=== PATIENT | female | born 1950 | race Caucasian/White ===

== ENCOUNTER 2017-04-28 06:56 | Outpatient (CLI) | payer MEDICARE ==
--- NOTE | 2017-04-28 09:51 | MRI ---
EXAM: MRI LUMBAR SPINE WITHOUT CONTRAST: HISTORY: Left leg pain. COMPARISON: None. TECHNIQUE: A lumbar spine MRI is performed without intravenous Gadolinium administration. Multisequential, mul tiplanar imaging is performed. FINDINGS: Appropriate T1 marrow signal intensity of the lumbar vertebrae. Lumbar spine vertebral body height is maintained. There is no fracture. There is no significant STIR hyperintensity to suggest verteb ral body edema or ligamentous injury. Symmetric signal intensity of psoas muscles. There is appropriate signal intensity of visualized so lid organs. Conus medullaris terminates at the T12 level. T12-L1: Adequate disk hydration. No significant central canal stenosis o foraminal narrowing. L1-L2: Disk desiccation without significant loss of disk space height. No significant central hunter l stenosis. Neural foramina are patent bilaterally. L2-L3: Disk desiccation with minimal loss of disk space height. No significant posterior disk abno rmality. No significant central canal stenosis. Mild right foraminal narrowing. The left neural f oramen is patent. L3-L4: Disk desiccation with minimal loss of disk space height. No significant posterior disk abno rmality. No significant central canal stenosis. Minimal right and left foraminal narrowing. L4-L5: Disk desiccation with mild loss of disk space height. There is a central disk bulge with mi nimal narrowing of both subarticular zones. No significant encroachment upon the traversing right L 5 nerve root. Minimal mass effect upon the traversing the left L5 nerve root. Mild right and left foraminal narrowing. L5-S1: No significant posterior disk abnormality. No significant central canal stenosis. Neural f oramen are patent. T1 hyperintensities in the left and right lateral recess due to peroneal sleeve cysts. IMPRESSION: Degenerative change of the lumbar spine as above. No high-grade central canal stenosis. No high-gr redd foraminal narrowing. POS: [facility]
== END 2017-04-28 06:57 | disposition home or self-care (01) ==
LOC: MRI 06:56
PROVIDERS: ATTEND Orthopaedic Surgery
DX: M54.5 Low back pain (principal); M47.896 Other spondylosis, lumbar region
CPT/HCPCS: 72148

== ENCOUNTER 2017-10-02 13:18 | Outpatient (CLI) | payer MEDICARE ==
--- NOTE | 2017-10-02 15:37 | ULT ---
LEFT LOWER EXTREMITY ULTRASOUND WITH DOPPLER: HISTORY: Edema. COMPARISON: None. TECHNIQUE: Mack-scale, color-flow, Doppler imaging, and spectral wave-form analysis was performed of the left lo wer extremity venous system. FINDINGS: There is compressibility, presence of flow, and augmentation in the common femoral vein, femoral vein , and popliteal vein. There is flow in the greater saphenous vein, profunda vein, and posterior tibi al vein. IMPRESSION: No evidence of thrombus in the left lower extremity deep venous system. POS: [facility]
== END 2017-10-02 13:19 | disposition home or self-care (01) ==
LOC: ULT 13:18
PROVIDERS: ATTEND Orthopaedic Surgery
DX: M79.89 Other specified soft tissue disorders (principal); M79.662 Pain in left lower leg

== ENCOUNTER 2018-02-22 13:56 | Outpatient (CLI) | payer MEDICARE | END 2018-02-22 13:57 | disposition home or self-care (01) | LOC: BICMAMMO 13:56 | PROVIDERS: ATTEND Family Medicine | DX: Z12.31 Encounter for screening mammogram for malignant neoplasm of breast (principal); Z13.820 Encounter for screening for osteoporosis; M85.88 Other specified disorders of bone density and structure, other site; Z78.0 Asymptomatic menopausal state; Z80.3 Family history of malignant neoplasm of breast | CPT/HCPCS: 77063; 77067; 77080 ==

== ENCOUNTER 2018-03-21 17:53 | Emergency (ER) | payer MEDICARE ==
--- NOTE | 2018-03-21 20:02 | RAD ---
PA AND LATERAL CHEST X-RAY: 03/21/2018 HISTORY: Dyspnea and cough. COMPARISON: 01/25/2017 FINDINGS: The cardiac silhouette and pulmonary vasculature are within normal limits. There is minimal symmetri c biapical pleural thickening present. The lungs are otherwise clear. There has been no interval ch lola from prior exam. IMPRESSION: No acute cardiopulmonary process. POS: [facility]
[2018-03-21] MEDS ORDERED: Albuterol Sulfate 2.5 mg/3 ml Neb ONE ×2 (21:01)
[2018-03-21] MEDS ORDERED: predniSONE 20 MG TAB ONE (21:13)
[2018-03-21] MEDS ORDERED: Acetaminophen 500 MG TAB ONE (21:20)
== END 2018-03-21 22:52 | disposition home or self-care (01) ==
LOC: ERS 17:53
DX: R06.2 Wheezing (principal); B34.9 Viral infection, unspecified; M81.0 Age-related osteoporosis without current pathological fracture; E78.5 Hyperlipidemia, unspecified; I10 Essential (primary) hypertension; Z79.899 Other long term (current) drug therapy
CPT/HCPCS: 71046; J7506; J7611; J7620

== ENCOUNTER 2018-10-03 21:56 | Observation (INO) | payer MEDICARE ==
[~2018-10-03 21:56] MED LIST: ISOVUE-370 76%-LOCM 1 ML ONE
[2018-10-03 22:32] LABS: #Basophils 0.1 thou/uL (0.0-0.2); #Eosinphils 0.3 thou/uL (0.0-0.7); #Lymphocytes 2.5 thou/uL (1.20-3.40); #Monocytes 0.4 thou/uL (0.11-0.59); #Neutrophils 3.2 thou/uL (1.40-6.50); %Basophils 2.1 % (0.0-1.0); %Eosinophils 3.9 % (0.0-10.0); %Lymphocytes 37.9 % (21.0-51.0); %Monocytes 6.4 % (0.0-10.0); %Neutrophils 49.6 % (42.0-75.0); Hemoglobin 11.8 g/dL (12.0-16.0); Mean Corpuscular HGB CONC 31.4 g/dL (32.0-36.0); Mean Corpuscular Hemoglobin 27.7 pg (27.0-31.0); Mean Corpuscular Volume 88.3 fL (78.0-98.0); Mean Platelet Volume 9.9 fL (7.4-10.4); Platelet Count 274 thou/uL (130-400); RBC Distribution Width 12.1 % (11.5-14.5); Red Blood Cell (RBC) Count 4.27 mill/uL (4.20-5.40); White Blood Cell (WBC) Count 6.5 thou/uL (4.8-10.8)
[2018-10-03 22:48] LABS: ALT (SGPT) 18 U/L (8-55); AST (SGOT) 19 U/L (5-34); Alkaline Phosphatase 106 U/L (40-150); Anion Gap 14 mmol/L (10-20); BUN (Urea Nitrogen) 15 mg/dL (9.8-20.1); Bilirubin, Total 0.4 mg/dL (0.2-1.2); Calc. Creatinine Clearance 0 mL/min (70-130); Calcium 9.7 mg/dL (7.8-10.44); Carbon Dioxide 24 mmol/L (23-31); Chloride 106 mmol/L (98-107); Estimated GFR-MDRD 65; Globulin 2.7 g/dL (2.4-3.5); Glucose 96 mg/dL (80-115); Potassium 3.9 mmol/L (3.5-5.1); Protein, Total 6.7 g/dL (6.0-8.3); Sodium 140 mmol/L (136-145)
[2018-10-03] MEDS ORDERED: diphenhydrAMINE 50 MG/ML VIAL ONE (23:17)
[2018-10-03] MEDS ORDERED: Famotidine/PF 20 mg/2ml Vial ONE (23:17)
[2018-10-03] MEDS ORDERED: methylPREDNISolone Sod Succ/PF 125 MG/2 ML VIAL ONE (23:17)
[2018-10-03] MEDS ORDERED: Pantoprazole 40 MG VIAL ONE (23:19)
[2018-10-03] MEDS ORDERED: Ondansetron PF 4 MG/2 ML Vial ONE (23:36)
[2018-10-04] MEDS ORDERED: MEROPENEM 1 GM/50 ML 1 GM in Premix Bag 1 BAG IVPB SCH (00:45)
[2018-10-04 03:17] VITALS: BMI 26.9
--- NOTE | 2018-10-04 08:01 | CT ---
CT OF THE ABDOMEN AND PELVIS WITH IV CONTRAST: INDICATION: History of lower abdominal pain. COMPARISON: None. FINDINGS: Lung bases are clear. No focal hepatic lesion is evident. The gallbladder is surgically absent. The pancreas, spleen, adrenal glands, and kidneys are normal-appearing. No free fluid or enlarged lymph nodes are evident. There is colonic diverticula involving the sigmoid colon. There is fluid present within the sigmoid colon. No overt pericolonic inflammatory stranding is evident. The uterus is surgically absent. Th e bladder, rectum, and perirectal soft tissues are unremarkable-appearing. No acute osseous abnormality is evident. There is diffuse osteopenia. There is scattered degenerati ve and osteoarthritic change. IMPRESSION: 1. Colonic diverticulosis. 2. Fluid density seen within the sigmoid colon can be seen with diarrheal states. This also can be seen with mild colitis. 3. Cholecystectomy and hysterectomy. POS: [facility]
[2018-10-04] MEDS ORDERED: Pregabalin 25 MG CAP PO PRN (10:57)
[2018-10-04] MEDS ORDERED: Gabapentin 100 MG CAP PO PRN (10:57)
[2018-10-04 11:13] LABS: #Lymphocytes 0.6 thou/uL (1.20-3.40); #Neutrophils 7.1 thou/uL (1.40-6.50); %Basophils 0.3 % (0.0-1.0); %Eosinophils 0.1 % (0.0-10.0); %Lymphocytes 7.4 % (21.0-51.0); %Monocytes 0.2 % (0.0-10.0); Hemoglobin 11.5 g/dL (12.0-16.0); Mean Corpuscular Hemoglobin 28.3 pg (27.0-31.0); Mean Corpuscular Volume 88.5 fL (78.0-98.0); Mean Platelet Volume 9.7 fL (7.4-10.4); Platelet Count 263 thou/uL (130-400); Red Blood Cell (RBC) Count 4.07 mill/uL (4.20-5.40); White Blood Cell (WBC) Count 7.7 thou/uL (4.8-10.8)
--- NOTE | 2018-10-04 11:57 | HP ---
CHIEF COMPLAINT: Melena. HISTORY OF PRESENT ILLNESS: This patient is a 68-year-old female with a couple of weeks of headaches, which are somewhat unusual for her. She also has some radicular pain, for which she has been taking some p.o. Aleve. The patient awoke yesterday with some generalized body pain. She took two Tylenol and Aleve at noon and got sleepy, took a nap. About 3, she woke up, started having maroon-colored bowel movements. She also developed some lower abdominal cramping type symptoms radiating to the back. She said she had about 5 bowel movements that were of the character before those other symptoms started. She also reports that recently she has been having a sensation that when she eats food is distending her stomach and staying in place for an hour before it feels like it will resolve. She denies specifically having had any fevers or chills or hematemesis. REVIEW OF SYSTEMS: Notable for generalized arthralgias. All other systems were reviewed and all pertinent positives and negatives noted in the history of present illness. PAST MEDICAL HISTORY: Osteoporosis, osteoarthritis, hyperlipidemia, hypertension, GERD, IBS, left lower extremity neuropathy, right lower extremity sciatica. 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 The patient also recently had some respiratory issues and was seen in the emergency department, was given albuterol. PAST SURGICAL HISTORY: Hysterectomy, cholecystectomy, left knee surgery, right parathyroidectomy, colonoscopies x3 notable for diverticulosis, last one was 4-5 years ago. She has had a tonsillectomy and a benign left breast lumpectomy. FAMILY HISTORY: Father had non-Hodgkin's lymphoma, hypertension, heart disease. Mother had non-Hodgkin's lymphoma and hypertension. SOCIAL HISTORY: The patient is a nonsmoker, nondrinker, and nondrug user. She is . She is full code. Her would be her surrogate decision maker. ALLERGIES: DULOXETINE WITH SEVERE ANAPHYLAXIS TYPE REACTION. IODINE WITH SEVERE ANAPHYLAXIS TYPE REACTION. CODEINE WHICH CAUSES ITCHING. HYDROCODONE AND MORPHINE BOTH CAUSE ITCHING. CORN CAUSES HER SOME DIARRHEA AND TOMATO CAUSES HER SOME DIARRHEA. PHYSICAL EXAMINATION: VITAL SIGNS: Temperature 98.1, pulse 65, respirations 16, O2 saturation 97% on room air, BP 121/73. GENERAL APPEARANCE: Age-appropriate female, in no distress. She is awake, alert, oriented, pleasant, and cooperative. HEART: Regular rate and rhythm without murmurs, gallops, or rubs. LUNGS: Clear to auscultation bilaterally with good chest wall expansion and air exchange. ABDOMEN: Soft and nondistended. Positive bowel sounds. She has tenderness to palpation in the extreme left lower quadrant area. No guarding, no rebound. EXTREMITIES: Warm, dry with no cyanosis, clubbing, or edema. She has significant osteoarthropathy of the finger joints. NEURO: The patient is neurologically intact. No focal defects. PSYCH: Normal affect and behavior. LABORATORY DATA: White count 6.5, hemoglobin 11.8, platelets 274. Sodium 140, potassium 3.9, chloride 106, CO2 is 24, BUN 15, creatinine 0.87, glucose 96, AST 19, ALT is 18, alkaline phosphatase 106, albumin 4.0. C. diff negative. CT abdomen and pelvis shows diverticulosis with some equivocal evidence for colitis which may simply be related to a diarrheal state and the evidence of cholecystectomy and hysterectomy. IMPRESSION AND PLAN: 1. Gastrointestinal bleed, it sounds more likely to be lower in nature and possibly diverticular. We will repeat her hemoglobin now and consult GI. Keep her n.p.o. until then. 2. Possible colitis. The patient's bleed could potentially be related to colitis. There is some evidence for that on the CT scan. We will continue with meropenem as that was started in the emergency department, although she does not have white count. Does not appear to have a fever. 3. Hypertension. Continue with her usual home medications including losartan and amlodipine. 4. Neuropathy. Continue gabapentin b.i.d. 5. History of osteoporosis. Continue her Fosamax. Job ID: [id number]
[2018-10-04] MEDS: MEROPENEM 1 GM/50 ML 1 GM in Premix Bag 1 BAG IVPB SCH ×2 (14:07→21:17)
[2018-10-04] MEDS ORDERED: GoLYTELY 4,000 ml Bottle PO SCH (17:00)
[2018-10-04] MEDS ORDERED: Labetalol HCl 100 MG/20 ML VIAL SLOW IVP PRN (19:22)
[2018-10-04] MEDS ORDERED: Acetaminophen 500 MG TAB PO PRN (19:22)
[2018-10-04] MEDS ORDERED: hydrALAZINE 20 MG/ML VIAL SLOW IVP PRN (19:23)
[2018-10-04] MEDS: Amlodipine 5 MG TAB PO SCH (19:43)
[2018-10-04] MEDS ORDERED: Ondansetron PF 4 MG/2 ML Vial SLOW IVP PRN (20:08)
[2018-10-04] MEDS ORDERED: Ondansetron ODT 4 MG TAB PO PRN (20:08)
--- NOTE | 2018-10-04 22:52 | CON ---
DATE OF CONSULTATION: 10/04/2018 REASON FOR CONSULTATION: GI bleeding. HISTORY OF PRESENT ILLNESS: Anju Ayala is a very pleasant 68-year-old woman, previously seen by my GI colleague, Dr. Dakota Mack. She has a history of left-sided diverticulosis. She has had colonoscopies back in 2000 and 1994. Her most recent endoscopy was in 2013. She had an EGD at that time, which was normal and a colonoscopy showing only diverticulosis in the sigmoid colon and descending colon as well as a scar at the splenic flexure. Dr. Mack had recommended repeating colonoscopy in a 5-year interval, which is coming up soon. The patient has some chronic IBS type symptoms, but nothing new in this regard recently. She reports that yesterday afternoon about 3:30, she had a sudden urge to have a bowel movement and passed a large amount of dark red blood into the commode. There was no stool with this. She had 11 more episodes yesterday, where she would have to go pass red blood into the toilet. 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 There was no significant abdominal pain. No anal pain with this. She was slightly nauseated, but there has been no vomiting. No presyncope. She presented last night for evaluation. Hemoglobin was 11.8. This morning, hemoglobin is 11.5. BUN only 15. She has had 3 more bloody bowel movements over the course of today, but feels that these are slowing down, passing mostly clots this morning. She has remained hemodynamically stable. CT scan demonstrated only sigmoid diverticulosis as well as fluid density within the sigmoid colon. REVIEW OF SYSTEMS: Full review of systems including constitutional, head, eyes, ears, nose, throat, GI, , cardiovascular, respiratory, musculoskeletal, neurologic systems is negative except as noted in the HPI. PAST MEDICAL HISTORY: Hysterectomy, cholecystectomy, left knee surgery, osteopenia, osteoarthritis, hyperlipidemia, hypertension, GERD, IBS, left lower extremity neuropathy, right lower extremity sciatica, recurrent laryngeal nerve injury, benign left breast lumpectomy, tonsillectomy, and right parathyroidectomy. FAMILY HISTORY: Father had non-Hodgkin lymphoma. Mother had non-Hodgkin lymphoma. Both maternal grandmother and mother had pancreatic cancer. SOCIAL HISTORY: No smoking, alcohol, or drug use. ALLERGIES: DULOXETINE, IODINE, CODEINE, HYDROCODONE, MORPHINE, CORN, TOMATOES. OUTPATIENT MEDICATIONS: 1. Gabapentin. 2. Omeprazole 40 mg daily. 3. Losartan. 4. Vitamin D3. 5. Amlodipine. 6. Fosamax. 7. Lyrica. PHYSICAL EXAMINATION: VITAL SIGNS: Temperature 98.4, pulse 70, blood pressure 137/81, and oxygen saturation 97% on room air. GENERAL: A 68-year-old woman, sitting up in bed comfortably, in no distress. SKIN: No jaundice. No rashes were palpable. HEENT: Eyes, no scleral icterus. Extraocular movements are intact. ENT, mucous membranes are moist. No oral lesions. LYMPH: No submandibular or supraclavicular lymphadenopathy. THYROID: Nontender to palpation. HEART: Regular rate and rhythm. LUNGS: Clear to auscultation bilaterally. ABDOMEN: Bowel sounds are present. Soft and nontender to palpation throughout. EXTREMITIES: No peripheral edema. VESSELS: Radial pulses 2+ bilaterally. NEUROLOGIC: Cranial nerves 2 to 12 intact bilaterally. No focal deficits. LABORATORY STUDIES: Hemoglobin stable at 11.5, WBC 7.7, platelets 263. Sodium 140, potassium 3.9, BUN 15, creatinine 0.87, total bilirubin 0.4, alkaline phosphatase 106, AST 19, ALT 18, albumin 4.0. C difficile assay is negative. IMAGING STUDIES: CT of the abdomen and pelvis demonstrates postoperative changes of cholecystectomy and hysterectomy. There are sigmoid diverticulosis as well as fluid density within the sigmoid colon. ASSESSMENT AND PLAN: 1. Lower gastrointestinal bleeding, appears to be resolving. 2. Acute blood loss anemia, mild. 3. Sigmoid diverticulosis. The patient's presentation seems most consistent with acute diverticular bleeding. This may be resolving as it appears to have been slowing down over the course of the day. It has been almost 5 years since her last colonoscopy. I would recommend we administer bowel preparation tonight and proceed with colonoscopy tomorrow. Trend hemoglobin and hematocrit tomorrow as well. If her hemoglobin and hematocrit were stable and bleeding has resolved, the patient could potentially be discharged from the hospital after colonoscopy tomorrow. The patient desires to proceed. Thank you for the consultation. Please call anytime with questions or concerns. Job ID: [id number]
[2018-10-05] MEDS: MEROPENEM 1 GM/50 ML 1 GM in Premix Bag 1 BAG IVPB SCH ×3 (06:22→22:20)
[2018-10-05] MEDS: Losartan 25 MG TAB PO SCH (08:18)
[2018-10-05] MEDS: Amlodipine 5 MG TAB PO SCH ×2 (08:18→19:32)
[2018-10-05 08:44] LABS: Hemoglobin 10.1 g/dL (12.0-16.0); Mean Corpuscular HGB CONC 31.9 g/dL (32.0-36.0); Mean Corpuscular Hemoglobin 28.2 pg (27.0-31.0); Mean Corpuscular Volume 88.5 fL (78.0-98.0); Mean Platelet Volume 9.4 fL (7.4-10.4); Platelet Count 226 thou/uL (130-400); RBC Distribution Width 12.2 % (11.5-14.5); Red Blood Cell (RBC) Count 3.59 mill/uL (4.20-5.40); White Blood Cell (WBC) Count 7.7 thou/uL (4.8-10.8)
[2018-10-05 08:45] LABS: #Basophils 0.1 thou/uL (0.0-0.2); #Eosinphils 0.1 thou/uL (0.0-0.7); #Monocytes 0.6 thou/uL (0.11-0.59); %Basophils 1.2 % (0.0-1.0); %Eosinophils 0.8 % (0.0-10.0); %Lymphocytes 25.7 % (21.0-51.0); %Monocytes 7.3 % (0.0-10.0); %Neutrophils 65.1 % (42.0-75.0)
[2018-10-05] MEDS ORDERED: PROPOFOL 200 MG/20 ML VIAL ONE (11:54)
--- NOTE | 2018-10-05 20:31 | PRG ---
DATE OF SERVICE: 10/05/2018 SUBJECTIVE: The patient is a very pleasant female with past medical history significant for left-sided diverticulosis per colonoscopies in 2000, 1994, and 2013, chronic IBS, hypertension, and hyperlipidemia, who presented with symptoms of rectal bleeding. She states that the bleeding has significantly decreased since her hospitalization. She has no complaints of nausea or vomiting. She had colonoscopy with Dr. Mack late this afternoon, which did reveal evidence of a diverticular bleed that was mostly resolved. OBJECTIVE: VITAL SIGNS: Blood pressure 101/57. The patient's temperature 97.5 , pulse 82, and O2 saturation 95% on room air. GENERAL: This is a well-appearing female, resting comfortably in no acute distress. She is awake, alert, and oriented x3. CV: S1 and S2. Regular rate and rhythm. No appreciable murmurs, rubs, or gallops. LUNGS: Regular respiratory rate and pattern. Clear to auscultation bilaterally. No wheezes, rhonchi, or crackles noted. ABDOMEN: Positive bowel sounds, soft, and nontender. SKIN: No rashes. EXTREMITIES: +2 DP pulses bilaterally. No edema. NEUROLOGIC: Cranial nerves 2 through 12 grossly intact. Otherwise, she is nonfocal. LABORATORY DATA: Hemoglobin is 10.1 down from 11.8 on her arrival, hematocrit 31.8. ASSESSMENT: 1. Hematochezia secondary to diverticular bleed, resolving. 2. Anemia secondary to above. 3. Hypertension, controlled. 4. Neuropathy. 5. History of osteoporosis. PLAN: We will recheck hemoglobin and hematocrit in the morning. I expect if her bleeding has completely resolved and her hemoglobin is stable, she will be able to go home tomorrow. We will follow GI recommendations. Continue home medication regimen. Care discussed with Dr. Jackson. Job ID: [id number] [facility]
[2018-10-06 05:57] LABS: #Basophils 0.1 thou/uL (0.0-0.2); #Eosinphils 0.2 thou/uL (0.0-0.7); #Lymphocytes 2.1 thou/uL (1.20-3.40); #Monocytes 0.4 thou/uL (0.11-0.59); %Basophils 0.9 % (0.0-1.0); %Eosinophils 3.2 % (0.0-10.0); %Lymphocytes 37.5 % (21.0-51.0); %Monocytes 6.2 % (0.0-10.0); %Neutrophils 52.2 % (42.0-75.0); Hemoglobin 10.1 g/dL (12.0-16.0); Mean Corpuscular HGB CONC 31.7 g/dL (32.0-36.0); Mean Corpuscular Hemoglobin 28.4 pg (27.0-31.0); Mean Corpuscular Volume 89.6 fL (78.0-98.0); Mean Platelet Volume 9.5 fL (7.4-10.4); Platelet Count 216 thou/uL (130-400); RBC Distribution Width 12.4 % (11.5-14.5); Red Blood Cell (RBC) Count 3.56 mill/uL (4.20-5.40); White Blood Cell (WBC) Count 5.7 thou/uL (4.8-10.8)
[2018-10-06] MEDS: MEROPENEM 1 GM/50 ML 1 GM in Premix Bag 1 BAG IVPB SCH (06:12)
--- NOTE | 2018-10-06 08:09 | OP ---
DATE OF PROCEDURE: 10/05/2018 PREOPERATIVE DIAGNOSIS: Lower gastrointestinal bleed. DESCRIPTION OF PROCEDURE: After informed consent was obtained, the patient was placed in a left lateral decubitus position. Anesthesia was administered per the Anesthesia Department. Forward-viewing endoscope was inserted into the rectum and passed to the cecum with ease. The cecum, ileocecal valve, and appendiceal orifice were normal. The prep was good to fair mainly because of foamy yellow material in the right colon. There was no blood or bloody affluent in the right colon. The terminal ileum was normal. No bloody effluent was seen there. The area was washed to exclude blood or mucosal abnormalities, but not good enough to exclude polyps. The right colon was normal. In the left colon, beginning in the sigmoid, there was some bright red bloody effluent that was washed clean. In the sigmoid, it was unsure whether the bloody effluent was reaccumulating or not, but no obvious area of bleeding was noted, but there were multiple diverticula in this area. Eventually, no bloody effluent was seen in the sigmoid. ASSESSMENT: Sigmoid diverticulosis coli-likely source of the patient's bleeding. There is bloody affluent in the sigmoid colon, but none in the right colon. RECOMMENDATIONS: 1. Continue observation for 24-48 additional hours depending on the patient's course and her H and H. 2. Resume diet. Job ID: [id number]
[2018-10-06] MEDS: Losartan 25 MG TAB PO SCH (08:45)
[2018-10-06] MEDS: Amlodipine 5 MG TAB PO SCH (08:45)
[2018-10-06 09:16] VITALS: BP 126/72; TEMP 97.8
--- NOTE | 2018-10-06 18:29 | DIS ---
DATE OF ADMISSION: 10/04/2018 DATE OF DISCHARGE: 10/06/2018 ALLERGIES: DULOXETINE, IODINE, CODEINE, CORN, HYDROCODONE, MORPHINE, AND TOMATO. CHIEF COMPLAINT: Rectal bleeding. FINAL DIAGNOSES: 1. Lower gastrointestinal bleed secondary to sigmoid diverticulosis. 2. Mild anemia secondary to above. 3. Hypertension. 4. Neuropathy. 5. History of osteoporosis. PROCEDURES PERFORMED: Colonoscopy by Dr. Dakota Mack. LABORATORY DATA: The patient's hemoglobin is stable at 10.1, hematocrit 31.9. Sodium 140, potassium 3.9, creatinine 0.87, glucose 96. LFTs within normal limits. IMAGING RESULTS: Endoscopy results; sigmoid diverticulosis coli likely source of the patient's bleeding. Bloody effluent was found in the sigmoid colon, but none in the right colon. She underwent washout and eventually no bloody effluent was seen in the sigmoid. CONSULTATIONS: Dr. Dakota Mack. HOSPITAL COURSE: The patient is a very pleasant 68-year-old female with past medical history significant for left-sided diverticulosis per colonoscopies in 1994, 2000, and 2013, chronic IBS, hypertension, and hyperlipidemia, who presented to the ER with symptoms of rectal bleeding. The patient states that she passed a large amount of dark red blood into the commode, with no stool apparent. She had 11 more episodes of this before and presenting to the ER for further workup and treatment. Her hemoglobin on arrival was 11.8. She continued to have several bloody stools during the day of her admission. She was seen in consultation by Dr. Arnav Sanabria of GI. He recommended colonoscopy. Her primary GI physician, Dr. Dakota Mack performed colonoscopy, which revealed sigmoid diverticulosis coli, likely source of the patient's bleeding. He performed washout with eventual no bloody effluent seen. She rested well overnight. Since procedure, she has had no further bleeding. Her hemoglobin is stable from yesterday at 10.1. The patient feels well. She denies any nausea, vomiting, chest pain, or shortness of breath. She denies any dizziness. Per GI recommendations, the patient did stay overnight after her procedure for observation and repeat hemoglobin and hematocrit, which was stable. PHYSICAL EXAMINATION: VITAL SIGNS: Blood pressure 126/72, O2 saturation 97%, and pulse 72. GENERAL: Awake and alert. No acute distress, sitting up in bed, eating breakfast. HEENT: Atraumatic and normocephalic. Eye movement intact. NECK: Supple, no JVD. No carotid bruit. RESPIRATORY: Regular respiratory rate and pattern, clear to auscultation bilaterally. CV: S1 and S2. No appreciable murmurs, rubs, or gallops. GI: Soft and nontender. Positive bowel sounds. PERIPHERAL VASCULAR: No lower extremity edema. +2 DP pulses bilaterally. MUSCULOSKELETAL: No joint effusion or swelling. NEUROLOGIC: Awake and alert. No focal deficit. SKIN: Normal, dry, no rashes. CONDITION AT DISCHARGE: Stable. DISCHARGE MEDICATIONS: 1. Fosamax 10 mg tab, one tab p.o. daily. 2. Amlodipine 5 mg tab, one tab p.o. b.i.d. 3. Vitamin D3 supplement 1000 unit capsule, 1000 units p.o. daily. 4. Gabapentin 100 mg p.o. b.i.d. 5. Losartan 100 mg p.o. daily. 6. Omeprazole 40 mg tab, one tab p.o. daily. 7. Pregabalin 25 mg cap, 100 mg p.o. b.i.d. 8. New prescription for ferrous sulfate 325 mg tablet, one tab p.o. b.i.d. DISCHARGE DISPOSITION: Discharged to home. PLAN: The patient will follow up with her primary care doctor in the next two weeks. She will follow up with GI. She will monitor for further signs of bleeding as well as continue her iron supplement. Plan of care discussed with Dr. Jackson and he agrees with plan. Job ID: [id number]
--- NOTE | 2018-10-09 11:57 | EKG ---
Test Reason : Blood Pressure : / mmHG Vent. Rate : 071 BPM Atrial Rate : 071 BPM P-R Int : 158 ms QRS Dur : 088 ms QT Int : 420 ms P-R-T Axes : 078 083 073 degrees QTc Int : 456 ms Normal sinus rhythm Septal infarct , age undetermined Abnormal ECG Confirmed by RIGO CROCKETT DO ([id number]), publications editor FAHEEM MAYERS ([id number]) on 10/09/2018 11:57:02 AM Referred By: Confirmed By:RIGO CROCKETT DO
== END 2018-10-06 09:34 | disposition home or self-care (01) ==
LOC: ERS 21:56 → T4-B 10-04 02:56
PROVIDERS: ADMIT Internal Medicine; ATTEND Internal Medicine
PROC: 0DJD8ZZ Inspection of Lower Intestinal Tract, Via Natural or Artificial Opening Endoscopic (ICD-10-PCS; principal; 2018-10-03)
DX: K57.31 Diverticulosis of large intestine without perforation or abscess with bleeding (principal); D64.9 Anemia, unspecified; I10 Essential (primary) hypertension; K58.9 Irritable bowel syndrome, unspecified; G62.9 Polyneuropathy, unspecified; M81.0 Age-related osteoporosis without current pathological fracture; E78.5 Hyperlipidemia, unspecified; Z79.899 Other long term (current) drug therapy; Z88.5 Allergy status to narcotic agent; Z88.8 Allergy status to other drugs, medicaments and biological substances; Z91.018 Allergy to other foods
CPT/HCPCS: 45378; 74177; 80053; 85025 ×4; 86850; 86900; 86901; 87324; 87449; 93005; 96365; 96366 ×3; 96375; 96376; 99285; G0378 ×3; 36415; C9113; J1200; J2185; J2405; J2704; J2930; Q9966; S0028

== ENCOUNTER 2019-03-10 07:59 | Outpatient (CLI) | payer MEDICARE ==
[2019-03-10 09:27] LABS: Bacteria/HPF None Seen HPF (None Seen); Bilirubin Negative (Negative); Blood, Urine Negative (Negative); Clarity Clear (Clear); Glucose, Urine (Dipstick) Normal (Negative); Leukocyte Negative Leu/uL (Negative); Nitrite Negative (Negative); Protein, Urine (Dipstick) 10 mg/dL (Neg-Trace); RBC/HPF 0-3 HPF (0-3); Squamous Epithelial 0-3 HPF (0-3); Urobilinogen Normal mg/dL (Less than 2); WBC/HPF 0-3 HPF (0-3)
[2019-03-10 09:34] LABS: INR-International Normal Ratio 0.9; Prothrombin Time 12.1 SEC (12.0-14.7)
[2019-03-10 09:35] LABS: #Basophils 0.1 thou/uL (0.0-0.2); #Eosinphils 0.3 thou/uL (0.0-0.7); #Lymphocytes 1.6 thou/uL (1.20-3.40); #Monocytes 0.5 thou/uL (0.11-0.59); #Neutrophils 3.8 thou/uL (1.40-6.50); %Basophils 1.1 % (0.0-1.0); %Eosinophils 4.9 % (0.0-10.0); %Lymphocytes 25.8 % (21.0-51.0); %Monocytes 7.3 % (0.0-10.0); Hemoglobin 13.1 g/dL (12.0-16.0); Mean Corpuscular HGB CONC 32.7 g/dL (32.0-36.0); Mean Corpuscular Hemoglobin 28.7 pg (27.0-31.0); Mean Corpuscular Volume 87.8 fL (78.0-98.0); Mean Platelet Volume 9.3 fL (7.4-10.4); Platelet Count 303 thou/uL (130-400); RBC Distribution Width 12.1 % (11.5-14.5); Red Blood Cell (RBC) Count 4.57 mill/uL (4.20-5.40); White Blood Cell (WBC) Count 6.3 thou/uL (4.8-10.8)
[2019-03-10 09:46] LABS: Anion Gap 14 mmol/L (10-20); BUN (Urea Nitrogen) 12 mg/dL (9.8-20.1); Calc. Creatinine Clearance 0 mL/min (70-130); Calcium 10.4 mg/dL (7.8-10.44); Carbon Dioxide 25 mmol/L (23-31); Chloride 104 mmol/L (98-107); Estimated GFR-MDRD 64; Glucose 87 mg/dL (80-115); Potassium 3.8 mmol/L (3.5-5.1); Sodium 139 mmol/L (136-145)
== END 2019-03-10 08:00 | disposition home or self-care (01) ==
LOC: LABBT 07:59
PROVIDERS: ATTEND Orthopaedic Surgery
DX: Z01.818 Encounter for other preprocedural examination (principal); M17.11 Unilateral primary osteoarthritis, right knee
CPT/HCPCS: 80048; 81001; 85025; 85610; 87081; 93005; 93010

== ENCOUNTER 2019-03-22 06:23 | Day surgery (SDC) | payer MEDICARE ==
[2019-03-10 08:13] VITALS: BMI 26.1
[2019-03-22] MEDS ORDERED: Sodium Chloride 0.9% 100 ML ONE (07:01)
[2019-03-22] MEDS ORDERED: Tranexamic Acid 1,000 MG/10 ML VIAL ONE (07:01)
[2019-03-22] MEDS ORDERED: Midazolam HCl 2 mg/2 ml Vial ONE (07:53)
[2019-03-22] MEDS ORDERED: Fentanyl 100 MCG/2 ML VIAL ONE ×4 (07:53→12:54)
[2019-03-22] MEDS ORDERED: Ropivacaine 0.5% HCl/PF (150 MG/30 ML VIAL) ONE (07:55)
[2019-03-22] MEDS ORDERED: Ropivacaine 0.2% HCl/PF 20 ML ONE (07:55)
[2019-03-22] MEDS ORDERED: traMADol HCl 50 MG TAB PO PRN (08:37)
[2019-03-22] MEDS ORDERED: Zolpidem Tartrate 5 MG TAB PO PRN ×2 (08:37→09:22)
[2019-03-22] MEDS ORDERED: Promethazine HCl 25 MG/ML VIAL IM PRN ×3 (08:37→10:28)
[2019-03-22] MEDS ORDERED: Ropivacaine HCl/PF 250 ML in Premix Bag 1 BAG NERVE BLCK SCH (08:37)
[2019-03-22] MEDS ORDERED: Fentanyl 100 MCG/2 ML VIAL IV PRN (08:38)
[2019-03-22] MEDS ORDERED: Ondansetron PF 4 MG/2 ML Vial IVP PRN (09:22)
[2019-03-22] MEDS ORDERED: Acetaminophen 325 MG TAB PO PRN (09:22)
[2019-03-22] MEDS ORDERED: PROVENTIL INHALER 6.7 G (200 INHALATIONS) INH PRN (09:24)
[2019-03-22] MEDS ORDERED: oxyCODONE/Acetaminophen 5 mg/325 mg Tablet PO PRN (09:25)
[2019-03-22] MEDS ORDERED: CEFAZOLIN 2 GM in Premix Bag 1 BAG IVPB SCH (09:30)
[2019-03-22] MEDS ORDERED: Promethazine HCl 25 MG/ML VIAL SLOW IVP PRN (10:28)
[2019-03-22] MEDS ORDERED: Ondansetron HCl/PF 4 MG/2 ML Vial IVP PRN (10:28)
[2019-03-22] MEDS ORDERED: Ondansetron PF 4 MG/2 ML Vial ONE (12:44)
[2019-03-22] MEDS ORDERED: PROPOFOL 200 MG/20 ML VIAL ONE (12:44)
[2019-03-22] MEDS ORDERED: ePHEDrine 50 MG/ML VIAL ONE (12:44)
[2019-03-22] MEDS ORDERED: Lidocaine 1% PF 5 ML VIAL ONE (12:44)
--- NOTE | 2019-03-22 12:59 | RAD ---
Exam:2 views right knee HISTORY: Status post right knee arthroplasty COMPARISON: None FINDINGS: Postoperative changes in the soft tissues. Right knee arthroplasty is identified. Alignment is near-anatomic. IMPRESSION: Findings compatible with a right knee arthroplasty.
--- NOTE | 2019-03-22 13:17 | OP ---
DATE OF PROCEDURE: 03/22/2019 PREOPERATIVE DIAGNOSIS: End-stage tricompartmental osteoarthritis, right knee. POSTOPERATIVE DIAGNOSIS: End-stage tricompartmental osteoarthritis, right knee. OPERATIVE PROCEDURE: Cemented cruciate sparing computer-assisted navigated right total knee arthroplasty. NAVAL DESIGNER: Frank Odonnell PA-C ANESTHESIA: General via LMA augmented with indwelling adductor canal block with an anterior sciatic single-shot block. COMPONENTS USED: [employer] triathlon size 3 cruciate sparing cemented femoral component with a size 3 cemented primary tibial base plate, 9 mm polyethylene fixed bearing insert, and an S27 patella. TOURNIQUET TIME: 56 minutes at 300 mmHg. ESTIMATED BLOOD LOSS: Less than 100. INPUT: 1500 crystalloid. OUTPUT: 100 mL clear yellow urine. FINDINGS: End-stage severe degenerative tricompartmental disease, [id number] arthrosis, periarticular osteophyte formation, large tears, fusion, hypertrophic synovium, and changes consistent with degenerative genu varum. DRAINS: None. SPECIMENS: None. COMPLICATIONS: None. COUNTS: Correct. INDICATION FOR SURGERY: This 68-year-old female, who has had right knee pain and problem with standing and walking for the last five to seven years. She has failed conservative management and elected to proceed with total knee arthroplasty as definitive treatment for her pain. PROCEDURE IN DETAIL: After informed consent was obtained in the preoperative holding area, the patient was taken to the operative suite where general anesthesia was induced. Once adequate level of general anesthesia was obtained, the patient was positioned and a well-padded tourniquet was placed around the right proximal thigh. The right lower extremity was then prepped and draped in the usual sterile fashion. Prior to exsanguination, a time-out was called and all members of the surgical team agreed upon site, surgeon, and patient. The extremity was then exsanguinated and the tourniquet was raised. A midline longitudinal incision was then made directly over the patella extending 2 fingerbreadths above the superior pole of the patella and 2 fingerbreadths inferior to the inferior patellar pole of the patella. Deeper subcutaneous layers were dissected sharply and local bleeding was controlled with Bovie electrocautery. A quad tendon longitudinal split was then made sharply and a median parapatellar arthrotomy was carried out both sharp and with Bovie electrocautery, carried down to 1 fingerbreadth medial to the tibial tubercle. The knee was then placed into flexion and the patella was everted nicely, and a copious fat pad ectomy was performed allowing for greater exposure of the tibia. The computer-assisted distal femoral fiducial was then placed and pinned firmly, and the distal femoral cutting guide was pinned firmly into place. The oscillating saw was then used to remove the appropriate amount of bone. The 4-in-1 cutting block was then placed on the distal femur and the oscillating saw was used to remove the appropriate amount of bone off the anterior, posterior, and chamfer cuts. After completion of bone cuts, the anterior cruciate ligament was resected sharply and the posterior cruciate ligament retractor was placed and the tibia was subluxed for better exposure. Partial meniscectomies were carried out, and the tibial computer-assisted fiducial was pinned, and the cutting guide was placed. Oscillating saw was then used to remove the bone, with Hohmann retractors used to take care and protect the collateral ligaments. After the tibial resection was performed, a laminar jewel gauger was placed in between the freshened bone cuts. The knee placed at 90 degrees and further bilateral meniscectomies were carried out, and the curved osteotome and curettage were used to remove any excess bone spurs in the posterior compartment. The trial femoral component, tibial baseplate were placed with the appropriate polyethylene trial insert with an appropriate polyethylene spacer and patellar button. The knee was taken through full range of motion with flexion and extension from 0 to 90 degrees and patellar broach squarely in the trochlea without any squinting or subluxation noted. The knee was also stable to varus and valgus stressing at 0, 15, 45, and 90 degrees of flexion. The drawer was negative. All trial components were then removed and the keel punch was used to provide the appropriate defect in the tibia with a mallet. The freshened bone cuts were copiously irrigated with pulsatile lavage of about 1.5 L to remove all excess debris. The freshened bone cuts were then dried with suction and lap sponge. The knee was placed in flexion and retractors were placed to provide access to all bone cuts. Tobramycin-impregnated methyl methacrylate cement was then placed on the freshened bone cuts and implants which were malleted firmly into place. Curettage and Turton elevators were used to remove any excess bone cement. The knee was placed into full extension and the patellar button was placed under compression, and the cement was allowed to cure. Once completed, the components were again taken through full range of motion and copious irrigation of the knee was carried out with another liter of normal saline. All components were inspected fully with full range of motion and varus and valgus stressing. There was no laxity noted and full extension was observed clinically. Primary closure was accomplished with #2 interrupted Vicryl stitch of the arthrotomy defect. This was oversewn with a #2 running Quill barbed stitch. The gravitational platelet system was then injected into the arthrotomy prior to closure. The subcutaneous layer was then closed with a running 0 barbed Monocryl stitch and skin closure accomplished with a running subcuticular 3-0 Monocryl barbed Quill stitch and augmented with cement on the skin. Tourniquet was lowered. Good spontaneous return of distal pulses was noted clinically and a sterile dressing was applied to the incision. The procedure was terminated without any complications. The patient was awakened in the operative suite and the was removed, and the patient was taken to the recovery room in stable condition. Job ID: [id number]
[2019-03-22] MEDS: Sodium Chloride 0.9% 1,000 ML IV SCH ×2 (14:14→14:25)
[2019-03-22] MEDS: Ketorolac Tromethamine 30 MG/ML VIAL IVP SCH ×2 (14:18→19:01)
[2019-03-22] MEDS: Acetaminophen 500 MG TAB PO SCH ×2 (14:21→19:02)
[2019-03-22] MEDS: CEFAZOLIN 2 GM in Premix Bag 1 BAG IVPB SCH (17:40)
[2019-03-22] MEDS: Mometasone/Formoterol 120 PUFF INHALER INH SCH (18:20)
[2019-03-22] MEDS: Ondansetron PF 4 MG/2 ML Vial IVP PRN (19:10)
[2019-03-22] MEDS: Senokot S 8.6-50 MG TAB PO SCH (20:18)
[2019-03-22] MEDS: Aspirin 81 mg Enteric Coated Tablet PO SCH (20:18)
[2019-03-22] MEDS: Amlodipine 5 MG TAB PO SCH (20:19)
[2019-03-22] MEDS: Ferrous Gluconate 324 MG TAB PO SCH (20:19)
[2019-03-23] MEDS: Sodium Chloride 0.9% 1,000 ML IV SCH ×2 (00:12→17:44)
[2019-03-23] MEDS: Acetaminophen 500 MG TAB PO SCH ×4 (00:12→19:44)
[2019-03-23] MEDS: Ketorolac Tromethamine 30 MG/ML VIAL IVP SCH ×5 (00:12→23:33)
[2019-03-23] MEDS: CEFAZOLIN 2 GM in Premix Bag 1 BAG IVPB SCH (01:49)
--- NOTE | 2019-03-23 02:08 | CON ---
DATE OF CONSULTATION: 03/22/2019 REASON FOR CONSULTATION: Medical management. CHIEF COMPLAINT: Presentation for elective right total knee replacement with Dr. Nielsen. HISTORY OF PRESENT ILLNESS: The patient is a pleasant 68-year-old female, with past medical history significant for osteoarthritis, who presented today for right total knee replacement with Dr. Nielsen. She is seen postoperatively up on the floor. She tolerated the procedure very well. She is resting comfortably. She currently has no complaints of nausea, dizziness, or pain. She was able to ambulate postoperatively. She has tolerated her dinner without issue. Family members are at bedside. The patient has no complaints. She denies any chest pain, shortness of breath, nausea, fever, or chills. Her postoperative pain is well controlled at this time. REVIEW OF SYSTEMS: 12-point review of systems performed and is negative except that stated above. PAST MEDICAL HISTORY: Osteoporosis, osteoarthritis, hyperlipidemia, hypertension, GERD, IBS, bilateral lower extremity neuropathy, history of recurrent laryngeal nerve injury and some vocal cord paralysis. PAST SURGICAL HISTORY: Hysterectomy, cholecystectomy, left total knee replacement, right parathyroidectomy, colonoscopy x4 most recent this year for diverticulosis and diverticular bleed, tonsillectomy, left breast lumpectomy/benign. FAMILY HISTORY: Noncontributory. SOCIAL HISTORY: The patient is nonsmoker, nondrinker, and no illicit drug use. ALLERGIES: CYMBALTA, WHICH CAUSES ANAPHYLAXIS; IODINE, WHICH CAUSES ANAPHYLAXIS; CHLORTHALIDONE; FLUOXETINE; CODEINE; CORN; HYDROCODONE; MORPHINE; AND TOMATO. HOME MEDICATIONS: 1. Tramadol 50 mg p.o. q.6 hours p.r.n. 2. Albuterol sulfate rescue inhaler. 3. Aleve 2 tabs p.o. p.r.n. 4. Fosamax 10 mg p.o. daily before meals. 5. Amlodipine 2.5 mg p.o. b.i.d. 6. Vitamin D3 supplement 2000 international units daily. 7. Omeprazole 20 mg daily. 8. Losartan 100 mg p.o. q.a.m. PHYSICAL EXAMINATION: VITAL SIGNS: Blood pressure is 147/72, pulse 67, O2 saturation is 98% on room air, respirations 18, and temperature 97.2. GENERAL: This is a well-appearing, middle-aged female, resting comfortably in bed, in no acute distress. HEENT: Head is atraumatic and normocephalic. Mucous membranes are moist. NECK: Trachea is midline. No JVD. CV: S1 and S2. Regular rate and rhythm. No appreciable murmurs, rubs, or gallops. LUNGS: Regular respiratory rate and pattern. Clear to auscultation bilaterally. ABDOMEN: Positive bowel sounds. Soft, nontender. EXTREMITIES: No edema. Right knee is dressed, wrapped, and elevated. NEUROLOGIC: Cranial nerves 2 through 12 are grossly intact. The patient is nonfocal. LABORATORY DATA: From March 10, 2019, white blood cell count 6.3, hemoglobin 13.1, hematocrit 40.2%, platelet count 303, potassium 3.9, sodium 139, BUN 12, creatinine 0.88, GFR 64. ASSESSMENT: 1. Status post right total knee replacement with Dr. Nielsen today. 2. Hypertension. 3. Neuropathy. 4. History of diverticulosis and diverticular bleeding, stable. 5. Osteoporosis. PLAN: At this time, we will continue antiemetic and pain control. Postoperative antimicrobial prophylaxis per Dr. Nielsen and his team. Continue physical therapy. Continue her antihypertensives, we will watch her blood pressure carefully. We will follow along with you. Thank you for the consult. Job ID: [id number]
[2019-03-23 06:21] LABS: Hemoglobin 10.6 g/dL (12.0-16.0); Mean Corpuscular HGB CONC 31.5 g/dL (32.0-36.0); Mean Corpuscular Hemoglobin 28.5 pg (27.0-31.0); Mean Corpuscular Volume 90.5 fL (78.0-98.0); Mean Platelet Volume 9.2 fL (7.4-10.4); Platelet Count 246 thou/uL (130-400); RBC Distribution Width 12.6 % (11.5-14.5); Red Blood Cell (RBC) Count 3.72 mill/uL (4.20-5.40); White Blood Cell (WBC) Count 7.6 thou/uL (4.8-10.8)
[2019-03-23] MEDS: Mometasone/Formoterol 120 PUFF INHALER INH SCH (07:46)
[2019-03-23] MEDS: traMADol HCl 50 MG TAB PO PRN ×2 (07:50→09:54)
[2019-03-23] MEDS: Aspirin 81 mg Enteric Coated Tablet PO SCH ×2 (07:55→21:47)
[2019-03-23] MEDS: Amlodipine 5 MG TAB PO SCH ×2 (07:59→21:46)
[2019-03-23] MEDS: Multivitamin W/ Minerals 1 TAB PO SCH (08:01)
[2019-03-23] MEDS: Cyanocobalamin (Vitamin B-12) 1,000 MCG TAB PO SCH (08:01)
[2019-03-23] MEDS: Senokot S 8.6-50 MG TAB PO SCH ×2 (08:01→21:46)
[2019-03-23] MEDS: Ferrous Gluconate 324 MG TAB PO SCH ×2 (08:02→21:47)
[2019-03-23] MEDS: Losartan 25 MG TAB PO SCH (08:02)
[2019-03-23] MEDS: Ondansetron PF 4 MG/2 ML Vial IVP PRN (10:35)
[2019-03-23] MEDS: oxyCODONE/Acetaminophen 5 mg/325 mg Tablet PO PRN ×3 (13:28→22:30)
[2019-03-23] MEDS: diphenhydrAMINE 25 MG CAP PO PRN ×2 (14:34→22:29)
--- NOTE | 2019-03-23 18:34 | PDOC.HOSPP ---
- Subjective Encounter Date: 03/23/19 Encounter Time: 12:00 Subjective: Pt seen for followup re: hypertension. No complaints. - Objective Vital Signs & Weight: Vital Signs (12 hours) Temp Pulse Resp BP BP Pulse Ox 03/23/19 15:08 98.6 F 71 16 160/79 H 96 03/23/19 08:11 97.8 F 71 18 119/61 97 03/23/19 08:00 97 03/23/19 07:59 71 119/61 Weight Admit Weight 157 lb Weight 157 lb I&O: 03/22/19 03/23/19 03/24/19 06:59 06:59 06:59 Intake Total 1350 1460 Output Total 1700 1700 Balance -350 -240 Result Diagrams: 03/23/19 05:55 Additional Labs: Labs and MARs reviewed by [facility] Hospitalist ROS - Review of Systems Cardiovascular: denies: chest pain, palpitations, orthopnea, paroxysmal noc. dyspnea, edema, light headedness Gastrointestinal: denies: nausea, vomitting, abdominal pain, diarrhea, constipation, melena, hematochezia - Medication Medications: Active Medications Generic Name Dose Route Start Last Admin Trade Name Freq PRN Reason Stop Dose Admin Acetaminophen 1,000 mg 03/22/19 12:00 03/23/19 13:30 Tylenol PO 03/24/19 06:01 Not Given Q6HR BASHIR Alendronate Sodium 10 mg 03/23/19 07:30 03/23/19 07:10 Fosamax PO 10 mg DAILY-AC BASHIR Administration Amlodipine Besylate 2.5 mg 03/22/19 21:00 03/23/19 07:59 Norvasc PO Not Given BID BASHIR Aspirin 81 mg 03/22/19 21:00 03/23/19 07:55 Ecotrin PO 81 mg BID BASHIR Administration Cholecalciferol 1,000 units 03/23/19 09:00 03/23/19 07:56 Vitamin D3 PO 1,000 units DAILY BASHIR Administration Cyanocobalamin 2,500 mcg 03/23/19 09:00 03/23/19 08:01 Vitamin B-12 PO 2,500 mcg DAILY BASHIR Administration Diphenhydramine HCl 25 mg 03/22/19 09:22 03/23/19 14:34 Benadryl PO 25 mg Q6H PRN Administration Itching Fentanyl 50 mcg 03/22/19 08:38 03/23/19 10:28 Sublimaze IV 50 mcg Q1H PRN Administration BREAKTHRU PAIN Ferrous Gluconate 324 mg 03/22/19 21:00 03/23/19 08:02 Fergon PO 324 mg BID BASHIR Administration Ropivacaine 250 ml/ Device 250 mls @ 10 mls/hr 03/22/19 08:37 03/23/19 14:27 NERVE BLCK 250 mls INF BASHIR Administration Sodium Chloride 1,000 mls @ 100 mls/hr 03/22/19 09:30 03/23/19 17:44 Normal Saline 0.9% IV Not Given .Q10H BASHIR Iron/Minerals/Multivitamins 1 tab 03/23/19 09:00 03/23/19 08:01 Theragran M PO 1 tab DAILY BASHIR Administration Ketorolac Tromethamine 15 mg 03/22/19 12:00 03/23/19 18:25 Toradol IVP 03/24/19 06:01 15 mg Q6HR BASHIR Administration Losartan Potassium 100 mg 03/23/19 09:00 03/23/19 08:02 Cozaar PO Not Given QAM BASHIR Mometasone Furoate/Formoterol Fumar 2 puff 03/22/19 18:30 03/23/19 07:46 Dulera 200 Mcg/5 Mcg Inhaler INH Not Given BID-RT BASHIR Ondansetron HCl 4 mg 03/22/19 08:37 03/23/19 10:35 Zofran IVP 4 mg Q6H PRN Administration Nausea/Vomiting Oxycodone/Acetaminophen 1 tab 03/22/19 09:25 03/23/19 18:24 Percocet 5/325 PO 1 tab Q4H PRN Administration MODERATE PAIN (4-7) Senna/Docusate Sodium 2 tab 03/22/19 21:00 03/23/19 08:01 Senokot S PO 2 tab BID BASHIR Administration Sodium Chloride 10 ml 03/22/19 09:22 03/23/19 18:27 Flush - Normal Saline IVF 10 ml PRN PRN Administration Saline Flush Tramadol HCl 50 mg 03/22/19 08:37 03/23/19 09:54 Ultram PO 50 mg Q6H PRN Administration Mild Pain (1-3) - Exam General Appearance: NAD Eye: anicteric sclera ENT: moist mucosa Neck: supple Heart: RRR Respiratory: CTAB, no wheezes Gastrointestinal: soft, non-tender Extremities: no clubbing Extremeties - other findings: s/p right knee surgery Psychiatric: normal affect, normal behavior Hosp A/P (1) HTN (hypertension) Code(s): I10 - ESSENTIAL (PRIMARY) HYPERTENSION Status: Chronic Qualifiers: Hypertension type: essential hypertension Qualified Code(s): I10 - Essential (primary) hypertension (2) Diverticular disease Code(s): K57.90 - DVRTCLOS OF INTEST, PART UNSP, W/O PERF OR ABSCESS W/O BLEED Status: Chronic (3) Osteoarthritis Code(s): M19.90 - UNSPECIFIED OSTEOARTHRITIS, UNSPECIFIED SITE Status: Chronic Qualifiers: Osteoarthritis location: unspecified site (4) Osteoporosis Code(s): M81.0 - AGE-RELATED OSTEOPOROSIS W/O CURRENT PATHOLOGICAL FRACTURE Status: Chronic - Plan PT/OT, out of bed/ambulate BP reasonably controlled, continue to monitor vital signs and titrate antihypertensives as needed. s/p right knee surgery. DVT prophylaxis and paon management per orthopedic surgery service. Continue Fosamax.
[2019-03-24] MEDS: Acetaminophen 500 MG TAB PO SCH ×2 (00:26→06:42)
[2019-03-24] MEDS: Sodium Chloride 0.9% 1,000 ML IV SCH ×2 (02:46→08:59)
[2019-03-24 05:08] LABS: Hemoglobin 9.8 g/dL (12.0-16.0); Mean Corpuscular HGB CONC 31.4 g/dL (32.0-36.0); Mean Corpuscular Hemoglobin 28.5 pg (27.0-31.0); Mean Corpuscular Volume 90.9 fL (78.0-98.0); Platelet Count 244 thou/uL (130-400); RBC Distribution Width 12.5 % (11.5-14.5); Red Blood Cell (RBC) Count 3.42 mill/uL (4.20-5.40); White Blood Cell (WBC) Count 8.3 thou/uL (4.8-10.8)
[2019-03-24] MEDS: Ketorolac Tromethamine 30 MG/ML VIAL IVP SCH (06:41)
[2019-03-24] MEDS: Mometasone/Formoterol 120 PUFF INHALER INH SCH ×2 (06:59→07:00)
[2019-03-24] MEDS: Ferrous Gluconate 324 MG TAB PO SCH (08:53)
[2019-03-24] MEDS: Cyanocobalamin (Vitamin B-12) 1,000 MCG TAB PO SCH (08:53)
[2019-03-24] MEDS: Multivitamin W/ Minerals 1 TAB PO SCH (08:53)
[2019-03-24] MEDS: Losartan 25 MG TAB PO SCH (08:54)
[2019-03-24] MEDS: Aspirin 81 mg Enteric Coated Tablet PO SCH (08:54)
[2019-03-24] MEDS: Amlodipine 5 MG TAB PO SCH (08:54)
[2019-03-24] MEDS: Senokot S 8.6-50 MG TAB PO SCH (08:55)
[2019-03-24 12:17] VITALS: BP 118/85; TEMP 98
== END 2019-03-24 13:49 | disposition home or self-care (01) ==
LOC: SDC 06:23 → SJJU 09:23 → SDC 03-24 13:49
PROVIDERS: ATTEND Orthopaedic Surgery
PROC: 0SRC0J9 Replacement of Right Knee Joint with Synthetic Substitute, Cemented, Open Approach (ICD-10-PCS; principal; 2019-03-22)
PROC: 8E0YXBZ Computer Assisted Procedure of Lower Extremity (ICD-10-PCS; 2019-03-22)
PROC: 3E0T3BZ Introduction of Anesthetic Agent into Peripheral Nerves and Plexi, Percutaneous Approach (ICD-10-PCS; 2019-03-22)
PROC: 3E0T3BZ Introduction of Anesthetic Agent into Peripheral Nerves and Plexi, Percutaneous Approach (ICD-10-PCS; 2019-03-22)
DX: M17.11 Unilateral primary osteoarthritis, right knee (principal); F41.9 Anxiety disorder, unspecified; M19.90 Unspecified osteoarthritis, unspecified site; K21.9 Gastro-esophageal reflux disease without esophagitis; I10 Essential (primary) hypertension; F32.9 Major depressive disorder, single episode, unspecified; M81.0 Age-related osteoporosis without current pathological fracture; E89.2 Postprocedural hypoparathyroidism; G89.18 Other acute postprocedural pain; E78.5 Hyperlipidemia, unspecified; G57.93 Unspecified mononeuropathy of bilateral lower limbs; K58.9 Irritable bowel syndrome, unspecified; K57.90 Diverticulosis of intestine, part unspecified, without perforation or abscess without bleeding; Z79.83 Long term (current) use of bisphosphonates; Z79.899 Other long term (current) drug therapy; Z88.5 Allergy status to narcotic agent; Z88.8 Allergy status to other drugs, medicaments and biological substances; Z91.018 Allergy to other foods; Z96.652 Presence of left artificial knee joint
CPT/HCPCS: 20985; 27447; 64445; 64448; 73560; 85027; 97116 ×2; 97139 ×2; 97150 ×2; 97530 ×3; 98960; 98961; C1713; C1776; 36415; J0690; J1885; J2001; J2250; J2405; J2704; J2795; J3010; J3370; J3490; Q0163

== ENCOUNTER 2020-03-27 08:37 | Outpatient (CLI) | payer MEDICARE ==
--- NOTE | 2020-03-27 09:32 | MMO ---
Bilateral MAMMO Bilat Screen [facility]. CLINICAL HISTORY: Patient is 69 years old and is seen for screening. The patient has no family history of breast cancer. The patient has no personal history of cancer. The patient has a history of left Excisional Biopsy in 1971 - benign. VIEWS: The views performed were: bilateral craniocaudal with tomosynthesis and bilateral mediolateral oblique with tomosynthesis. FILMS COMPARED: The present examination has been compared to prior imaging studies performed at [facility] on 12/14/2014, 12/20/2015, 02/22/2018 and 03/03/2019. This study has been interpreted with the assistance of computer-aided detection. MAMMOGRAM FINDINGS: The breasts are heterogeneously dense, which could obscure a lesion on mammography. There are stable benign appearing densities seen in both breasts. There are no suspicious masses, suspicious calcifications, or new areas of architectural distortion. IMPRESSION: THERE IS NO MAMMOGRAPHIC EVIDENCE OF MALIGNANCY. A ROUTINE FOLLOW-UP MAMMOGRAM IN 1 YEAR IS RECOMMENDED. THE RESULTS OF THIS EXAM WERE SENT TO THE PATIENT. ACR BI-RADS Category 2 - Benign finding MAMMOGRAPHY NOTE: 1. A negative mammogram report should not delay a biopsy if a dominant of clinically suspicious mass is present. 2. Approximately 10% to 15% of breast cancers are not detected by mammography. 3. Adenosis and dense breasts may obscure an underlying neoplasm. Reported by: SRINI BEGUM MD Electonically Signed: [id number]
== END 2020-03-27 08:38 | disposition home or self-care (01) ==
LOC: BICMAMMO 08:37
PROVIDERS: ATTEND Family Medicine
DX: Z12.31 Encounter for screening mammogram for malignant neoplasm of breast (principal); Z91.89 Other specified personal risk factors, not elsewhere classified
CPT/HCPCS: 77063; 77067

== ENCOUNTER 2020-05-29 09:03 | Outpatient (CLI) | payer MEDICARE ==
--- NOTE | 2020-05-29 09:49 | BD ---
EXAM: Bone densitometry using DEXA HISTORY: 70 yo female. Screening for postmenopausal osteoporosis FINDINGS: L1--bone mineral density 0.792 g/sq cm; T score -1.8 ; Z score 0.1 L2--bone mineral density 1.032 g/sq cm; T score 0.0 ; Z score 2.2 L3--bone mineral density 0.943 g/sq cm; T score -1.3 ; Z score 1.0 L4--bone mineral density 0.836 g/sq cm; T score -2.0 ; Z score 0.3 Total L1-L4--bone mineral density 0.898 g/sq cm; T score -1.4 ; Z score 0.8 Left femoral neck--bone mineral density0.565; T score -2.6 ; Z score -0.7 Total proximal left femur--bone mineral density 0.800; T score -1.2 ; Z score 0.4 IMPRESSION: Osteoporosis
== END 2020-05-29 09:04 | disposition home or self-care (01) ==
LOC: BICMAMMO 09:03
PROVIDERS: ATTEND Family Medicine
DX: Z13.820 Encounter for screening for osteoporosis (principal); Z00.00 Encounter for general adult medical examination without abnormal findings; M81.0 Age-related osteoporosis without current pathological fracture; Z78.0 Asymptomatic menopausal state
CPT/HCPCS: 77080

== ENCOUNTER 2022-04-01 08:54 | Outpatient (CLI) | payer MEDICARE | END 2022-04-01 08:55 | disposition home or self-care (01) | LOC: BICMAMMO 08:54 | PROVIDERS: ATTEND Family Medicine | DX: Z12.31 Encounter for screening mammogram for malignant neoplasm of breast (principal); Z91.89 Other specified personal risk factors, not elsewhere classified | CPT/HCPCS: 77063; 77067 ==

== ENCOUNTER 2022-08-04 09:58 | Outpatient (CLI) | payer MEDICARE | END 2022-08-04 09:59 | disposition home or self-care (01) | LOC: MRI 09:58 | PROVIDERS: ATTEND Family Medicine | DX: M51.17 Intervertebral disc disorders with radiculopathy, lumbosacral region (principal); M50.122 Cervical disc disorder at C5-C6 level with radiculopathy; M16.11 Unilateral primary osteoarthritis, right hip; M47.26 Other spondylosis with radiculopathy, lumbar region; M47.27 Other spondylosis with radiculopathy, lumbosacral region; M47.25 Other spondylosis with radiculopathy, thoracolumbar region; M47.22 Other spondylosis with radiculopathy, cervical region; M47.23 Other spondylosis with radiculopathy, cervicothoracic region; M48.8X2 Other specified spondylopathies, cervical region | CPT/HCPCS: 72141; 72148 ==

== ENCOUNTER 2023-04-16 08:40 | Outpatient (CLI) | payer MEDICARE | END 2023-04-16 08:41 | disposition home or self-care (01) | LOC: BICMAMMO 08:40 | PROVIDERS: ATTEND Family Medicine | DX: Z12.31 Encounter for screening mammogram for malignant neoplasm of breast (principal); M81.0 Age-related osteoporosis without current pathological fracture; M85.851 Other specified disorders of bone density and structure, right thigh; M85.852 Other specified disorders of bone density and structure, left thigh; Z91.89 Other specified personal risk factors, not elsewhere classified; Z80.3 Family history of malignant neoplasm of breast | CPT/HCPCS: 77063; 77067; 77080 ==

== ENCOUNTER 2024-07-15 11:56 | Outpatient (CLI) | payer MEDICARE | END 2024-07-15 11:57 | disposition home or self-care (01) | LOC: BICMAMMO 11:56 | PROVIDERS: ATTEND Family Medicine | DX: Z12.31 Encounter for screening mammogram for malignant neoplasm of breast (principal); Z80.3 Family history of malignant neoplasm of breast; Z91.89 Other specified personal risk factors, not elsewhere classified | CPT/HCPCS: 77063; 77067 ==

== ENCOUNTER 2025-03-28 11:06 | Outpatient (CLI) | payer OTHER | END 2025-03-28 11:07 | disposition home or self-care (01) | LOC: SCSMRI 11:06 | PROVIDERS: ATTEND Family Medicine | DX: M51.16 Intervertebral disc disorders with radiculopathy, lumbar region (principal); M47.816 Spondylosis without myelopathy or radiculopathy, lumbar region; M48.061 Spinal stenosis, lumbar region without neurogenic claudication | CPT/HCPCS: 72148 ==

== ENCOUNTER 2025-05-02 13:47 | Outpatient (CLI) | payer OTHER | END 2025-05-02 13:48 | disposition home or self-care (01) | LOC: SCSRAD 13:47 | PROVIDERS: ATTEND Family Medicine | DX: M25.561 Pain in right knee (principal); M25.562 Pain in left knee; Z96.653 Presence of artificial knee joint, bilateral ==

== ENCOUNTER 2025-06-07 12:21 | Inpatient (IN) | payer OTHER ==
[~2025-06-07 12:21] MED LIST changes: -ISOVUE-370 76%-LOCM 1 ML ONE; +Iopamidol-370 76% 500 ML MDV (1 ML CHARGE) ONE
[2025-06-07] MEDS ORDERED: Ondansetron PF 4 MG/2 ML Vial ONE (12:41)
[2025-06-07] MEDS ORDERED: Aspirin Chewable 81 MG TAB ONE (12:47)
[2025-06-07] MEDS ORDERED: Nitroglycerin 2% Ointment 1 INCH/1 GM Packet ONE (12:50)
[2025-06-07 13:07] LABS: ALT (SGPT) 12 U/L (Less than 34); AST (SGOT) 21 U/L (11-34); Albumin 3.4 g/dL (3.1-4.5); Alkaline Phosphatase 94 U/L (40-110); Anion Gap 18 mmol/L (10-20); BUN (Urea Nitrogen) 21 mg/dL (9.8-20.1); Bilirubin, Total 0.6 mg/dL (0.3-1.2); Calc. Creatinine Clearance 0 mL/min (70-130); Calcium 9.7 mg/dL (7.8-10.44); Carbon Dioxide 22 mmol/L (23-31); Chloride 98 mmol/L (98-107); Globulin 2.9 g/dL (2.4-3.5); Glucose 101 mg/dL (83-110); Potassium 3.4 mmol/L (3.5-5.1); Sodium 135 mmol/L (136-145)
[2025-06-07 13:10] LABS: #Basophils 0.15 10x3/uL (0.0-0.2); #Eosinophils 0.83 10x3/uL (0.0-0.7); #Monocytes 0.66 10x3/uL (0.11-0.59); #Neutrophils 3.60 10x3/uL (1.40-6.50); %Basophils 2.2 % (0.0-1.0); %Eosinophils 12.4 % (0.0-10.0); %Lymphocytes 21.3 % (21.0-51.0); %Monocytes 9.8 % (0.0-10.0); %Neutrophils 53.7 % (42.0-75.0); Hematocrit 33.4 % (36.0-47.0); Hemoglobin 10.6 g/dL (12.0-16.0); Mean Corpuscular Hemoglobin 28.6 pg (27.0-31.0); Mean Corpuscular Volume 90.0 fL (78.0-98.0); Platelet Count 328 10x3/uL (130-400); Red Blood Cell (RBC) Count 3.71 mill/uL (4.20-5.40); White Blood Cell (WBC) Count 6.71 10x3/uL (4.8-10.8)
[2025-06-07] MEDS ORDERED: Nitroglycerin 0.4 MG TAB (25 Tab Bottle) ONE (15:19)
[2025-06-07] MEDS ORDERED: diphenhydrAMINE 50 MG/ML VIAL ONE (15:32)
[2025-06-07] MEDS ORDERED: Famotidine/PF 20 mg/2ml Vial ONE (15:32)
[2025-06-07 16:15] VITALS: BMI 25.6
[2025-06-07] MEDS: Acetaminophen 325 MG TAB PO PRN (18:16)
[2025-06-07] MEDS: Nitroglycerin 2% Ointment 1 INCH/1 GM Packet TOP SCH (22:55)
[2025-06-08 04:30] LABS: #Basophils Less than 0.03 10x3/uL (0.0-0.2); #Eosinophils Less than 0.03 10x3/uL (0.0-0.7); #Monocytes 0.14 10x3/uL (0.11-0.59); #Neutrophils 4.24 10x3/uL (1.40-6.50); %Basophils 0.4 % (0.0-1.0); %Eosinophils 0.0 % (0.0-10.0); %Lymphocytes 10.9 % (21.0-51.0); %Monocytes 2.8 % (0.0-10.0); %Neutrophils 85.5 % (42.0-75.0); Hematocrit 29.5 % (36.0-47.0); Hemoglobin 9.3 g/dL (12.0-16.0); Mean Corpuscular Hemoglobin 28.6 pg (27.0-31.0); Mean Corpuscular Volume 90.8 fL (78.0-98.0); Platelet Count 269 10x3/uL (130-400); Red Blood Cell (RBC) Count 3.25 mill/uL (4.20-5.40); White Blood Cell (WBC) Count 4.96 10x3/uL (4.8-10.8)
[2025-06-08 04:50] LABS: Anion Gap 14 mmol/L (10-20); BUN (Urea Nitrogen) 19 mg/dL (9.8-20.1); Calc. Creatinine Clearance 44 mL/min (70-130); Calcium 8.7 mg/dL (7.8-10.44); Carbon Dioxide 19 mmol/L (23-31); Cardiac Risk 2.7 (Less than 4.5); Chloride 108 mmol/L (98-107); Cholesterol 168 mg/dl (< 200 Desired); Glucose 142 mg/dL (83-110); HDL Cholesterol 62 mg/dL (>60 Neg Risk); LDL Cholesterol, Calculated 97 mg/dL; Potassium 4.2 mmol/L (3.5-5.1); Sodium 137 mmol/L (136-145); Triglycerides 43 mg/dL (Less than 150)
[2025-06-08] MEDS ORDERED: Mometasone 100 MCG/Formoterol 5 MCG 120 PUFF INHALER INH PRN (09:00)
[2025-06-08] MEDS: Enoxaparin 40 MG (0.4 mL) SYRINGE SC SCH (09:26)
[2025-06-08] MEDS: Gabapentin 300 MG CAP PO SCH (09:28)
[2025-06-08] MEDS: Pantoprazole 40 MG DR.TAB PO PRN (09:28)
[2025-06-08] MEDS ORDERED: Communication Order-Pharmacy FS SCH (13:45)
[2025-06-08] MEDS: predniSONE 20 MG TAB PO SCH (14:15)
[2025-06-09] MEDS ORDERED: Famotidine/PF 20 mg/2ml Vial SLOW IVP SCH (00:01)
[2025-06-09 04:20] LABS: #Basophils 0.03 10x3/uL (0.0-0.2); #Eosinophils Less than 0.03 10x3/uL (0.0-0.7); #Monocytes 0.39 10x3/uL (0.11-0.59); #Neutrophils 7.26 10x3/uL (1.40-6.50); %Basophils 0.4 % (0.0-1.0); %Eosinophils 0.0 % (0.0-10.0); %Lymphocytes 9.2 % (21.0-51.0); %Monocytes 4.6 % (0.0-10.0); %Neutrophils 85.4 % (42.0-75.0); Hematocrit 30.0 % (36.0-47.0); Hemoglobin 9.8 g/dL (12.0-16.0); Mean Corpuscular Hemoglobin 29.1 pg (27.0-31.0); Mean Corpuscular Volume 89.0 fL (78.0-98.0); Platelet Count 276 10x3/uL (130-400); Red Blood Cell (RBC) Count 3.37 mill/uL (4.20-5.40); White Blood Cell (WBC) Count 8.49 10x3/uL (4.8-10.8)
[2025-06-09 04:49] LABS: Anion Gap 11 mmol/L (10-20); BUN (Urea Nitrogen) 11 mg/dL (9.8-20.1); Calc. Creatinine Clearance 67 mL/min (70-130); Calcium 8.3 mg/dL (7.8-10.44); Carbon Dioxide 19 mmol/L (23-31); Chloride 114 mmol/L (98-107); Glucose 104 mg/dL (83-110); Potassium 4.1 mmol/L (3.5-5.1); Sodium 140 mmol/L (136-145)
[2025-06-09] MEDS: predniSONE 20 MG TAB PO SCH (05:56)
[2025-06-09] MEDS: hydrALAZINE 20 MG/ML VIAL SLOW IVP SCH (09:24)
[2025-06-09] MEDS: Ondansetron PF 4 MG/2 ML Vial IVP PRN (10:50)
[2025-06-09] MEDS ORDERED: Iopamidol 370 76% 100 ML VIAL ONE (10:54)
[2025-06-09] MEDS ORDERED: Adenosine 6 mg (2 mL) VIAL ONE (13:00)
[2025-06-09] MEDS ORDERED: Nitroglycerin 50 MG/250 ML BOT 250 ML ONE (13:01)
[2025-06-09] MEDS ORDERED: PHENYLEPHRINE-NS 100 MCG/ML 10 ML SYRINGE ONE (13:01)
[2025-06-09] MEDS ORDERED: Lidocaine 1% (PF) 30 ML VIAL ONE (13:01)
[2025-06-09] MEDS ORDERED: Heparin 10,000 UNITS/ 10 ML VIAL ONE (13:01)
[2025-06-09] MEDS ORDERED: diphenhydrAMINE 50 MG/ML VIAL ONE (13:29)
[2025-06-09] MEDS ORDERED: Nitroglycerin 0.4 MG TAB (25 Tab Bottle) SL PRN (14:37)
[2025-06-09 19:50] VITALS: BP 150/76; TEMP 97.5
== END 2025-06-09 19:57 | disposition home or self-care (01) | DRG 287 ==
LOC: ERS 12:21 → 2SE 16:00 → OBSVTOIN 06-08 13:53
PROVIDERS: ADMIT Internal Medicine; ATTEND Internal Medicine
PROC: B2111ZZ Fluoroscopy of Multiple Coronary Arteries using Low Osmolar Contrast (ICD-10-PCS; principal; 2025-06-08)
PROC: 4A023N7 Measurement of Cardiac Sampling and Pressure, Left Heart, Percutaneous Approach (ICD-10-PCS; 2025-06-08)
DX: R07.9 Chest pain, unspecified (principal); N17.9 Acute kidney failure, unspecified; M85.89 Other specified disorders of bone density and structure, multiple sites; E78.5 Hyperlipidemia, unspecified; I10 Essential (primary) hypertension; K21.9 Gastro-esophageal reflux disease without esophagitis; M54.30 Sciatica, unspecified side; K58.9 Irritable bowel syndrome, unspecified; E89.2 Postprocedural hypoparathyroidism; E87.6 Hypokalemia; Z98.890 Other specified postprocedural states; Z90.49 Acquired absence of other specified parts of digestive tract; Z90.710 Acquired absence of both cervix and uterus; Z90.89 Acquired absence of other organs; Z88.8 Allergy status to other drugs, medicaments and biological substances; Z91.041 Radiographic dye allergy status; Z88.5 Allergy status to narcotic agent; Z91.018 Allergy to other foods; Z79.891 Long term (current) use of opiate analgesic; Z79.899 Other long term (current) drug therapy
CPT/HCPCS: 36415; 71045; 71275; 74174; 80048; 80053; 80061; 83036; 83690; 83880; 84484; 85025; 93005; 93458; 96372; 96374; 96375; 96376; C1769; C1894; G0378; J0153; J0169; J0360; J0461; J1200; J1308; J1644; J1650; J2003; J2250; J2405; J2919; J3010; J7030; J7512; Q9967

== ENCOUNTER 2025-07-17 09:01 | Outpatient (CLI) | payer OTHER | END 2025-07-17 09:02 | disposition home or self-care (01) | LOC: BICMAMMO 09:01 | PROVIDERS: ATTEND Family Medicine | DX: Z12.31 Encounter for screening mammogram for malignant neoplasm of breast (principal); Z13.820 Encounter for screening for osteoporosis; Z78.0 Asymptomatic menopausal state; M85.89 Other specified disorders of bone density and structure, multiple sites; Z80.3 Family history of malignant neoplasm of breast; Z91.89 Other specified personal risk factors, not elsewhere classified | CPT/HCPCS: 77063; 77067; 77080 ==